=== PATIENT | female | born 1985 | race Caucasian/White ===

== ENCOUNTER 2018-01-08 08:59 | Inpatient (IN) | payer OTHER ==
--- NOTE | 2018-01-08 10:02 | HP ---
General Information - General Information Maternal Age: 32 Grav: 1 Para: 0 SAB: 0 IEA: 0 Estimated Due Date: 01/12/18 Determined By: LMP Gestational Age in Weeks and Days: 39 Weeks and 3 Days Maternal Blood Type and Rh: O Negative - Results this Serology/RPR Result: Non-Reactive Rubella Result: Immune HBsAg Result: Negative HIV Result: Negative GBS Culture Result: Negative Past Medical History Delivery History: See Records Past Medical History Comment: hx Headaches Pertinent Past Surgical History: See Records Past Surgical History Comment: Adenoids and tonsils in 1991 Pertinent Family History: See Records Family History Comment: Nicholas's, DM, HTN, high chol, Breast CA, Pancreatic CA - Antepartal Records Antepartal Records: Reviewed, Complicated by: - anemia Review of Systems Constitutional: Uncomfortable CV Complaint: No Respiratory: Shortness of Breath: No Gastrointestinal: No Nausea/Vomiting, Normal Bowel Movement Genitourinary: No Dysuria, No Leaking Fluid Musculoskeletal: Contractions Neurological: No Headache Movement: Normal Exam T: 98.1, P: 105, R: 22, BP: 131/69. - Measurements Height: 5 ft 3 in Weight: 198 lb Weight in lbs: 198 Body Mass Index (BMI): 35.0 Pre- Weight: 168 lb Weight Gained This : 30 lbs and 0 ozs - Exam Abdomen: No Upper Quadrant Pain Breast: Breast Exam Deferred CVA: No CVA Tenderness Extremities: No Edema Heart: Normal Rhythm/Heart Sounds HEENT: No Significant Findings Lungs: Clear Bilaterally Rectal: Rectal Exam Deferred - Cervical Exam 6/100/0 - Abdominal Exam Abdomen Exam: Non-Tender - Membranes Membrane Status: Intact - Ultrasound/Biophysical Profile Ultrasound Status: Not Done EFM Findings - External Monitor Findings Baseline Heart Rate: 130 External Monitor Findings: Accelerations Present, No Pattern of Variable or Late Decelerations, Variability Moderate, Baseline Stable Contractions: Regular, Moderate, 45-90 Seconds Assessment/Plan - Reason for Visit Reason for Visit: active labor - Plan Plan: Active Labor - Date/Time of Admission Date of Admission: 01/08/18 Time of Admission: 10:00
[2018-01-08] MEDS ORDERED: OXYTOCIN* 10 UNITS/ML 1 ML VIAL IM ONE (16:14)
[2018-01-08] MEDS ORDERED: Acetaminophen TAB* 325 MG PO PRN (16:14)
[2018-01-08] MEDS ORDERED: RHO D Immune Globulin (HUMAN)* 300 MCG = 1,500 I.U. INJ IM ONE (16:14)
[2018-01-08] MEDS ORDERED: Glycerin ADULT SUPP PR PRN (16:14)
[2018-01-08] MEDS ORDERED: Misoprostol TAB* 200 MCG PR ONE (16:14)
[2018-01-08] MEDS ORDERED: Simethicone TAB* 80 MG TAB.CHEW PO SCH (17:30)
[2018-01-08] MEDS: Docusate CAP* 100 MG PO SCH (20:01)
[2018-01-08] MEDS: Witch Hazel PAD* JAR TOPICAL PRN (20:01)
[2018-01-08] MEDS: Dibucaine 1% 28.35 GM TUBE PR PRN (20:01)
[2018-01-09] MEDS: Ibuprofen TAB* 600 MG PO PRN ×3 (02:29→16:45)
[2018-01-09 07:12] LABS: Hematocrit 25 % (35-47); Hemoglobin 8.1 g/dl (12.0-16.0); Mean Corpuscular HGB Conc 32 g/dl (31-36); Mean Corpuscular Hemoglobin 25 pg (27-31); Mean Corpuscular Volume 77 fL (80-97); Mean Platelet Volume 10.2 um3 (7.4-10.4); Platelet Count 153 10^3/ul (150-450); Red Blood Count 3.25 10^6/ul (4.0-5.4); Red Cell Distribution Width 18 % (10.5-15); White Blood Count 15.7 10^3/ul (3.5-10.8)
[2018-01-09 08:14] LABS: ABS Basophils 0.1 10^3/ul (0-0.2); ABS Eosinophils 0.1 10^3/ul (0-0.6); ABS Lymphocytes 2.5 10^3/ul (1.0-4.8); ABS Monocytes 1.6 10^3/ul (0-0.8); ABS Neutrophils 11.4 10^3/ul (1.5-7.7); ABS Nucleated RBC 0 10^3/ul; Eosinophil % 0.8 % (0-6); Nucleated Red Blood Cells % 0
[2018-01-09] MEDS: Docusate CAP* 100 MG PO SCH ×3 (09:16→20:33)
[2018-01-09] MEDS: Ferrous Gluconate TAB* 324 MG TAB PO SCH ×2 (09:16→20:33)
--- NOTE | 2018-01-09 14:47 | PTEDU ---
Patient Name: DYLON MOORE DYLON MOORE selected video: Never Ever Shake a Baby to view on 01/09/2018 at 2:47:00 PM [place] [facility] [id number]
[2018-01-09 20:41] VITALS: BP 112/66
[2018-01-10] MEDS: Ibuprofen TAB* 600 MG PO PRN (08:02)
[2018-01-10] MEDS: Docusate CAP* 100 MG PO SCH (08:39)
[2018-01-10] MEDS: Ferrous Gluconate TAB* 324 MG TAB PO SCH (08:39)
[2018-01-10] MEDS: Witch Hazel PAD* JAR TOPICAL PRN (11:16)
[2018-01-10] MEDS: Dibucaine 1% 28.35 GM TUBE PR PRN (11:17)
== END 2018-01-10 14:25 | disposition home or self-care (01) | DRG 560 ==
LOC: MCHOBOUT 08:59 → MCHOB 09:53
PROVIDERS: ADMIT Midwife; ATTEND Midwife
PROC: 10E0XZZ Delivery of Products of Conception, External Approach (ICD-10-PCS; principal; 2018-01-08)
PROC: 0HQ9XZZ Repair Perineum Skin, External Approach (ICD-10-PCS; 2018-01-08)
DX: O70.0 First degree perineal laceration during delivery (principal); O90.81 Anemia of the puerperium; D64.9 Anemia, unspecified; Z3A.39 39 weeks gestation of pregnancy; Z37.0 Single live birth
CPT/HCPCS: 36415; 85025; A9270-GY; J2590

== ENCOUNTER 2020-09-08 09:01 | Inpatient (IN) ==
[2020-09-08 10:24] LABS: Hematocrit 35 % (35-47); Hemoglobin 11.5 g/dL (12.0-16.0); Mean Corpuscular HGB Conc 33 g/dL (31-36); Mean Corpuscular Hemoglobin 26 pg (27-31); Mean Corpuscular Volume 79 fL (80-97); Mean Platelet Volume 10.6 fL (7.4-10.4); Platelet Count 153 10^3/uL (150-450); Red Cell Distribution Width 16 % (10-15); White Blood Count 9.3 10^3/uL (3.5-10.8)
[2020-09-08 10:50] LABS: ABS Eosinophils 0.1 10^3/ul (0-0.6); ABS Lymphocytes 2.4 10^3/ul (1.0-4.8); ABS Monocytes 0.7 10^3/ul (0-0.8); ABS Neutrophils 6.1 10^3/ul (1.5-7.7); Eosinophil % 1.1 %; Lymphocyte % 25.8 %
[2020-09-08 11:09] LABS: Urine Benzodiazepine Screen None Detected (None Detect); Urine Cannabinoids Screen None Detected (None Detect); Urine Opiates Screen None Detected (None Detect)
[2020-09-08] MEDS ORDERED: fentaNYL 100 mcg/2 ml 50 MCG/ML VIAL IV SLOW PU ONE ×2 (11:09→12:12)
[2020-09-08] MEDS ORDERED: Oxytocin in LR 20 UNITS/1,000 ML BAG IVPB ONE (12:59)
[2020-09-08] MEDS ORDERED: Witch Hazel PAD JAR TOPICAL PRN (13:27)
[2020-09-08] MEDS ORDERED: RHO D Immune Globulin (HUMAN) 300 MCG = 1,500 I.U. INJ IM ONE (13:43)
[2020-09-08] MEDS ORDERED: Lactated Ringers 1000 ml BAG 1,000 ML IV SCH (14:00)
[2020-09-08] MEDS ORDERED: Oxytocin in LR 20 UNITS/1,000 ML BAG IVPB SCH (14:00)
[2020-09-08] MEDS ORDERED: Ammonia Inhalant 1 EA AMP ONE (14:56)
[2020-09-09 06:27] LABS: ABS Eosinophils 0.1 10^3/ul (0-0.6); ABS Lymphocytes 3.3 10^3/ul (1.0-4.8); ABS Monocytes 0.8 10^3/ul (0-0.8); ABS Neutrophils 6.3 10^3/ul (1.5-7.7); Eosinophil % 1.1 %; Hematocrit 30 % (35-47); Hemoglobin 9.7 g/dL (12.0-16.0); Mean Corpuscular HGB Conc 33 g/dL (31-36); Mean Corpuscular Hemoglobin 26 pg (27-31); Mean Corpuscular Volume 80 fL (80-97); Mean Platelet Volume 10.4 fL (7.4-10.4); Platelet Count 132 10^3/uL (150-450); Red Blood Count 3.73 10^6 /uL (3.70-4.87); Red Cell Distribution Width 15 % (10-15); White Blood Count 10.6 10^3/uL (3.5-10.8)
[2020-09-09 08:12] VITALS: BP 113/61
== END 2020-09-09 17:44 | disposition home or self-care (01) | DRG 560 ==
LOC: MCHOBOUT 09:01 → MCHOB 09:44
PROVIDERS: ADMIT Midwife; ATTEND Midwife